=== PATIENT | male | born 1955 | race Caucasian/White ===

== ENCOUNTER 2018-03-19 20:00 | Emergency (ER) | payer OTHER ==
[~2018-03-19] VITALS: Ht 177.8 cm; Wt 98.9 kg
[2018-03-19 20:03] VITALS: BP 111/76
--- NOTE | 2018-03-19 20:07 | NUR ---
TO BED # 7 AMBULATORY, REPORT GIVEN TO BRIJESH AVERY
--- NOTE | 2018-03-19 20:07 | NUR ---
63/M BIB FMAILY W C/O NERVOUSNESS/RESTLESSNESS S/P "BEING HELD IN [facility] OVERNIGHT AND HE WAS NOT ABLE TO TAKE HIS MEDICATIONS FOR HEART AND ANXIETY". FAMILY REPORTS PT WAS NOT ABLE TO SLEEP OVERNIGHT AND WAS SHAKING. PT NOTED WITH ANXIETY BUT COOPERATIVE. PMH: HTN, ANXIETY
[2018-03-19] MEDS ORDERED: LORazepam 2 MG/ML VIAL IM ONE (20:25)
--- NOTE | 2018-03-19 21:54 | NUR ---
Dr. Guevara evaluating patient at bedside.
[2018-03-19 21:57] VITALS: BP 134/72
--- NOTE | 2018-03-19 21:57 | NUR ---
Patient discharged with v/s stable. Written and verbal after care instructions given and explained BY DR ULLOA. Patient verbalized understanding. Ambulatory with steady gait. All questions addressed prior to discharge. Advised to follow up with PMD.
== END 2018-03-19 21:57 | disposition home or self-care (01) ==
LOC: MED 20:00
DX: F41.9 Anxiety disorder, unspecified (principal); I10 Essential (primary) hypertension
CPT/HCPCS: 96372; 99284; J2060; 99283

== ENCOUNTER 2019-03-01 19:34 | Emergency (ER) | payer OTHER ==
[~2019-03-01] VITALS: Ht 175.3 cm; Wt 98.9 kg
[2019-03-01 20:10] VITALS: BP 140/90
--- NOTE | 2019-03-01 20:20 | NUR ---
TO BED # 06 AMBULATORY
--- NOTE | 2019-03-01 20:34 | NUR ---
MOVED TO ER BED 12
--- NOTE | 2019-03-01 20:35 | NUR ---
64 YO M BIB SELF AND PRESENTS TO ED C/O HEADACHE AND ABD PAIN S/P DRINKING ANDREW BARAJAS FROM [employer] AT 1600. WENT TO URGENT CARE; INSTRUCTED TO COME TO ED WITH REFERRAL LETTER THAT STATES PT SWALLOWED PLASTIC FRAGMENT. -- PT AWAKE, ALERT, CALM, COOPERATIVE. ANSWERS QUESTIONS APPROPRIATELY. BEHAVIOR AGE APPROPRIATE. -- SKIN PINK, WARM, DRY. BREATHING EVEN, UNLABORED. PT DENIES DIFFICULTY BREATHING OR SWALLOWING. PMH-- DENIES
[2019-03-01] MEDS ORDERED: KETOROLAC 60 MG/2 ML VIAL IM ONE (20:50)
[2019-03-01 21:30] VITALS: BP 138/89
== END 2019-03-01 21:30 | disposition home or self-care (01) ==
LOC: MED 19:34
DX: T18.9XXA Foreign body of alimentary tract, part unspecified, initial encounter (principal); R10.13 Epigastric pain; R51 Headache; I10 Essential (primary) hypertension; X58.XXXA Exposure to other specified factors, initial encounter; Y93.89 Activity, other specified; Y92.89 Other specified places as the place of occurrence of the external cause; Y99.8 Other external cause status
CPT/HCPCS: 96372; 99283; J1885